=== PATIENT | male | born 1980 | race Caucasian/White ===

== ENCOUNTER 2019-12-18 22:12 | Emergency (ER) | payer OTHER, SELFPAY ==
[2019-12-18 22:14] VITALS: BP 143/77; PULSE 68; RESP 16; TEMP 35.7; O2SAT 100
--- NOTE | 2019-12-19 00:09 | ED.UPPEXIN ---
HPI - Extremity Injury (Upper) General Chief Complaint: Extremity Injury, Upper Stated Complaint: hand injury Time Seen by Provider: 12/18/19 22:24 History of Present Illness HPI narrative: Patient is a 39-year-old male who presents the ER with a laceration to his left wrist. Reports he was working on [employer] when it started spinning back around and lacerated his skin. No numbness or tingling. Held pressure. Tetanus up-to-date. Review of Systems Musculoskeletal: Musculoskeletal: Reports arthralgias and Denies joint swelling Integumentary/Breasts: Comments: Laceration to left wrist Neurologic: Denies focal weakness and Denies numbness PMFSH Past Medical History Medical History (Updated 12/19/19 @ 00:16 by Vito Abbott MD) No pertinent past medical history Surgical History Surgical History (Updated 12/19/19 @ 00:10 by Vito Abbott MD) No pertinent past surgical history Social History Social History (Updated 12/19/19 @ 00:11 by Vito Abbott MD) Smoking status: Never smoker Exam Narrative: Exam Narrative: GENERAL: Well-appearing, well-nourished, and in no acute distress. HEAD: Normocephalic, atraumatic. EXTREMITIES: Normal range of motion. No edema. 5.5 cm laceration to the left wrist ulnar aspect at the base of the palm. NV intact distal. No deep structures affected. SKIN: Warm, dry, no rash. NEURO: No focal deficits. Alert and oriented x3. PSYCH: Normal mood and affect. Course Vital Signs Vital signs: Vital Signs Temperature 96.2 F L 12/18/19 22:14 Pulse Rate 68 12/18/19 22:14 Respiratory Rate 16 12/18/19 22:14 Blood Pressure 143/77 H 12/18/19 22:14 Pulse Oximetry 100 12/18/19 22:14 Temperature 96.2 F L 12/18/19 22:14 Pulse Rate 68 12/18/19 22:14 Respiratory Rate 16 12/18/19 22:14 Blood Pressure 143/77 H 12/18/19 22:14 Pulse Oximetry 100 12/18/19 22:14 Procedures Laceration Laceration 1: Date: 12/19/19 Time: 00:00 Site: hand Side (If applicable): left Size (cm): 5.5 Description: irregular Depth: simple, single layer Local Anesthetic: lidocaine 1% and with epi Amount of anesthesia used (mL): 8 Pre-repair: wound explored, irrigated and deep structures intact ====== Skin Level ====== Skin layer closed with: nylon Size (cm): 4-0 Number of sutures: 7 Technique: simple, interrupted and horizontal mattress ====== Subcutaneous Layer ====== ====== Muscle Layer ====== ====== Tendon Layer ====== Discharge Plan Discharge Clinical Impression: Laceration of wrist Patient Disposition: Home, Self-Care Condition: Stable Instructions: Care For Your Stitches (ED), Laceration (ED) Additional Instructions: Remove your sutures on 01/01/2020. Return to the ER if your hand is red and hot, you have pus draining from the wound, you have red streaking up your arm, you have fever over 100.4 ?F. Follow-up/Referrals: Aneudy Boo MD [Physician] - 1 Week PHYSICIAN,[employer] [Primary Care Provider] -
[2019-12-19 00:23] VITALS: BP 131/89; PULSE 88; RESP 12; TEMP 36.3; O2SAT 100
== END 2019-12-19 00:25 | disposition home or self-care (01) ==
PROVIDERS: Emergency Provider Emergency Medicine
DX: S61.512A Laceration without foreign body of left wrist, initial encounter (principal); W26.8XXA Contact with other sharp object(s), not elsewhere classified, initial encounter
CPT/HCPCS: 12002; 99282